=== PATIENT | female | born 1990 | race Caucasian/White ===

== ENCOUNTER 2018-07-26 11:24 | Emergency (ER) | payer SELFPAY ==
[~2018-07-26] VITALS: Ht 157.5 cm; Wt 77.4 kg
[2018-07-26 11:30] VITALS: BP 118/82; PULSE 94; RESP 18; Ht 157.5 cm; Wt 77.4 kg
== END 2018-07-26 12:09 | disposition left against medical advice (07) ==
LOC: FTE 11:24
DX: Z53.21 Procedure and treatment not carried out due to patient leaving prior to being seen by health care provider (principal)